=== PATIENT | male | born 1995 ===

== ENCOUNTER 2017-10-04 20:10 | Emergency (ER) | payer SELFPAY ==
[2017-10-04 21:55] LABS: Basophils % (Auto) 0.7 % (0.0-1.8); Eosinophils % (Auto) 0.1 % (0.0-4.3); Hematocrit 40.1 % (35.5-45.6); Lymphocytes # (Auto) 1.3 K/mm3 (1.2-5.4); Lymphocytes % (Auto) 17.9 % (13.4-35.0); Mean Corpuscular HGB Conc 35 % (32-34); Mean Corpuscular Hemoglobin 32 pg (28-32); Mean Corpuscular Volume 90 fl (84-94); Monocytes # (Auto) 0.7 K/mm3 (0.0-0.8); Monocytes % (Auto) 9.2 % (0.0-7.3); Platelet Count 230 K/mm3 (140-440); Red Blood Count 4.44 M/mm3 (3.65-5.03); Red Cell Distribution Width 12.3 % (13.2-15.2)
[2017-10-04 22:00] LABS: Bilirubin,Urine NEG (Negative); Blood,Urine NEG (Negative); Color,Urine Yellow (Yellow); Protein,Urine <15 mg/dL mg/dL (Negative); RBC,Urine < 1.0 /HPF (0.0-6.0); Urobilinogen,Urine < 2.0 mg/dL (<2.0)
[2017-10-04 22:05] LABS: BUN/Creatinine Ratio 19; Blood Urea Nitrogen 15 mg/dL (9-20); Calcium 9.9 mg/dL (8.4-10.2); Hemolysis Index 24
[2017-10-04 22:17] LABS: WBC,Urine < 1.0 /HPF (0.0-6.0)
[2017-10-04 22:26] LABS: Amphetamine Screen,Urine PRESUMPTIVE NEGATIVE; Benzodiazepines Screen,Urine PRESUMPTIVE NEGATIVE; Cannabinoid Screen,Urine PRESUMPTIVE NEGATIVE; Cocaine Screen,Urine PRESUMPTIVE NEGATIVE; Methadone Screen,Urine PRESUMPTIVE NEGATIVE; Opiate Screen,Urine PRESUMPTIVE NEGATIVE
[2017-10-04] MEDS ORDERED: GEODON IM ONE ×2 (22:35→22:43)
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
[2017-10-04 23:25] LABS: BUN/Creatinine Ratio 17; Blood Urea Nitrogen 15 mg/dL (9-20); Calcium 10.1 mg/dL (8.4-10.2)
[2017-10-04 23:26] LABS: Alanine Aminotransferase 8 units/L (7-56); Albumin 5.4 g/dL (3.9-5); Hemolysis Index 25
[2017-10-05] MEDS ORDERED: WATER FOR INJ (PF) 10 ML ONE ×2 (10:51→20:11)
[2017-10-05] MEDS: GEODON IM PRN ×2 (11:03→21:33)
[2017-10-05] MEDS ORDERED: HALDOL ONE (13:14)
[2017-10-05] MEDS ORDERED: HALDOL IM ONE (13:14)
[2017-10-05] MEDS ORDERED: BENADRYL IM ONE (13:14)
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
[2017-10-05 20:20] LABS: Hepatitis A Antibody IgM Non-Reactive (NonReactive); Hepatitis B Core IgM Non-Reactive (NonReactive); Hepatitis B Surface Antigen Non-Reactive (Negative); Hepatitis C Virus Antibody Non-Reactive (NonReactive)
[2017-10-05] MEDS ORDERED: WATER FOR INJ (PF) IM PRN (20:33)
[2017-10-05] MEDS ORDERED: WATER FOR INJ (PF) IM SCH (21:00)
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
[2017-10-06] MEDS ORDERED: GEODON IM ONE ×2 (22:50→23:00)
[2017-10-06] MEDS ORDERED: WATER FOR INJ (PF) 10 ML ONE (22:51)
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
[2017-10-08 09:17] VITALS: BP 101/65
--- NOTE | 2017-10-08 17:30 | Progress Note ---
Subjective - Reason for Consult Reason for consult: indecent behavior in public - Chief Complaint Chief complaint: Subjectively: The patient reports improved sleep consolidation. Currently patient not having racing thoughts. Patient appears to be more organized and logical goal- directed. Future oriented as well. Patient notes that he was stressed and had been working several jobs back to back which led to sleep disturbance and subsequent disorganized behavior. General Appearance: hospital gown, no acute distress Sensorium/Consciousness: alert and responding to external stimuli; clear Orientation: person, place, time and situation Eye Contact: fair Attitude / Behavior: cooperative Psychomotor & Musculoskeletal Activity: WNL Mood: ok Affect: constricted Speech / Language: fluent, with normal rate/rhythm/tone Thought Processes: organized, logical, linear Thought Content: no SI/HI Perception: no AVH Insight: fair Judgement: imporved Capacity for ADLs: independent Plan: Rescind 1013 Provide outpatient mental health services refer to [facility] in [facility] Provide prescription for Zyprexa 5 mg at bedtime upon discharge from the hospital. Mental Status Exam - Vital signs Last Vital Signs Temp 97.8 F 10/08/17 09:16 Pulse 80 10/08/17 09:16 Resp 18 10/08/17 09:16 BP 101/65 10/08/17 09:16 Pulse Ox 99 10/08/17 09:16
--- NOTE | 2017-10-08 21:00 | Emergency Department Report ---
Blank Doc - Documentation Documentation: PT'S [address] BY DR RUIZ PSYCHIATRIST; PLAN WAS TO : Provide outpatient mental health services refer to [facility] in [facility] Provide prescription for Zyprexa 5 mg at bedtime upon discharge from the hospital.
== END 2017-10-08 21:51 | disposition home or self-care (01) ==
LOC: ED 20:10 → EEVIPCON 20:10 → EDBD 20:10 → ED 10-08 21:51
DX: R41.0 Disorientation, unspecified (principal)
CPT/HCPCS: 36415; 80048; 80053; 80074; 80307; 81001; 85025; 86705; 87806; 96372; 99285; G0480; J1200; J1630; J3486; 80320